=== PATIENT | female | born 1990 | race Caucasian/White ===

== ENCOUNTER 2017-04-20 20:33 | Emergency (ER) | payer MEDICAID ==
[2017-04-20 20:42] VITALS: BP 136/81
[2017-04-20] MEDS ORDERED: DIAZEPAM 5 MG TABLET PO ONE (20:57)
[2017-04-20] MEDS ORDERED: HYDROCODONE/ACETAMINOPHEN 5-325 MG 6 TAB/DSPK PO PRN (20:58)
[2017-04-20] MEDS ORDERED: KETOROLAC TROMETHAMINE 60 MG/2 ML SDV IM ONE (20:58)
--- NOTE | 2017-04-20 21:05 | ER Document Report ---
HPI - HPI Patient complains to provider of: back pain Pain Level: 5 Context: 26 yo female c/o pain to low back. hx/o chronic low back pain. reports "crushed L,4,5" usually take "Perc 10" but uninsured presently and cant afford to see pain management. increased pain x 2 days. typical pain for patient. has been moving into new home, carrying 4mo son. denies fever, urinary or bowel dysfunction, radiculopathy or paresthesias. Associated Symptoms: None Exacerbated by: Movement Relieved by: Denies Similar symptoms previously: Yes Recently seen / treated by doctor: No - ROS Systems Reviewed and Negative: Yes All other systems reviewed and negative - REPRODUCTIVE Reproductive: DENIES: : - DERM Skin Color: Normal Past Medical History - General Information source: Patient - Social History Smoking Status: Current Every Day Smoker Frequency of alcohol use: None Drug Abuse: None Lives with: Family Family History: Arthritis, Thyroid Disfunction Patient has suicidal ideation: No Patient has homicidal ideation: No Renal/ Medical History: Denies: Hx Peritoneal Dialysis Musculoskeltal Medical History: Reports Hx Arthritis, Reports Hx Musculoskeletal Trauma Psychiatric Medical History: Reports: Hx Anxiety Past Surgical History: Reports: Hx Section - Immunizations Immunizations up to date: Yes Hx Diphtheria, Pertussis, Tetanus Vaccination: Yes Vertical Provider Document - CONSTITUTIONAL Agree With Documented VS: Yes Exam Limitations: No Limitations - INFECTION CONTROL TRAVEL OUTSIDE OF THE [place] IN LAST 30 DAYS: No - HEENT HEENT: Atraumatic, PERRLA - NECK Neck: Normal Inspection, Supple - RESPIRATORY Respiratory: Breath Sounds Normal, No Respiratory Distress O2 Sat by Pulse Oximetry: 98 - CARDIOVASCULAR Cardiovascular: Regular Rate, Regular Rhythm - BACK Back: Abnormal Inspection - + distal lumbar spinal tenderness. neg SLT, neg heel toe Course - Re-evaluation Re-evalutation: 04/20/17 21:03 no neurologic deficits or red flags identified. no emergent imaging indicated. - Vital Signs Vital signs: Temp Pulse Resp BP Pulse Ox 98.2 F 95 21 H 136/81 H 98 04/20/17 20:41 04/20/17 20:41 04/20/17 20:41 04/20/17 20:41 04/20/17 20:41 Discharge - Discharge Clinical Impression: Chronic back pain Qualifiers: Back pain location: low back pain Back pain laterality: midline Sciatica presence: without sciatica Qualified Code(s): M54.5 - Low back pain; G89.29 - Other chronic pain Condition: Stable Disposition: ADMITTED INPATIENT Instructions: Ice Packs ([facility]), Warm Packs ([facility]), Low Back Pain ([facility]), Toradol Injection ([facility]) Additional Instructions: Follow up with primary care/pain management for further evaluation and treatment Forms: Elevated Blood Pressure
== END 2017-04-20 21:30 | disposition other institution (70) ==
LOC: ER 20:33
DX: M54.5 Low back pain (principal); M54.9 Dorsalgia, unspecified; F17.200 Nicotine dependence, unspecified, uncomplicated
CPT/HCPCS: 99283; 96372; J1885

== ENCOUNTER 2017-07-03 18:59 | Emergency (ER) | payer SELFPAY ==
[2017-07-03] MEDS ORDERED: KETOROLAC TROMETHAMINE 60 MG/2 ML SDV IM ONE (19:55)
[2017-07-03] MEDS ORDERED: HYDROCODONE/ACETAMINOPHEN 5-325 MG 6 TAB/DSPK PO PRN (20:46)
--- NOTE | 2017-07-03 20:47 | ER Document Report ---
ED Neck/Back Problem - General Chief Complaint: Back Pain Stated Complaint: BACK PAIN Time Seen by Provider: 07/03/17 19:40 Mode of Arrival: Ambulatory Information source: Patient Notes: Patient is a 26-year-old female who presents to the ER today for chronic back pain. Patient states that she moved into a new house and has been lifting a lot lately and aggravated it 2 days ago. She denies any numbness, tingling, loss of bladder or bowel function. She states that she needs surgery for multiple compression fractures that she received 8 years ago when she was 18 years old from a fall. TRAVEL OUTSIDE OF THE [place] IN LAST 30 DAYS: No - Related Data Allergies/Adverse Reactions: No Known Allergies Allergy (Unverified 07/03/17 19:06) Past Medical History - General Information source: Patient - Social History Smoking Status: Unknown if Ever Smoked Chew tobacco use (# tins/day): No Frequency of alcohol use: None Drug Abuse: None Family History: Arthritis, Thyroid Disfunction Renal/ Medical History: Denies: Hx Peritoneal Dialysis Musculoskeltal Medical History: Reports Hx Arthritis, Reports Hx Musculoskeletal Trauma Psychiatric Medical History: Reports: Hx Anxiety Past Surgical History: Reports: Hx Section - Immunizations Immunizations up to date: Yes Hx Diphtheria, Pertussis, Tetanus Vaccination: Yes Review of Systems - Review of Systems Constitutional: No symptoms reported EENT: No symptoms reported Cardiovascular: No symptoms reported Respiratory: No symptoms reported Gastrointestinal: No symptoms reported Genitourinary: No symptoms reported Female Genitourinary: No symptoms reported Musculoskeletal: See HPI Skin: No symptoms reported Hematologic/Lymphatic: No symptoms reported Neurological/Psychological: No symptoms reported Physical Exam - Vital signs Vitals: Temp Pulse Resp BP Pulse Ox 97.9 F 76 18 140/73 H 100 07/03/17 19:06 07/03/17 19:06 07/03/17 19:06 07/03/17 19:06 07/03/17 19:06 - Notes Notes: PHYSICAL EXAMINATION: GENERAL: Well-appearing and in no acute distress. HEAD: Atraumatic, normocephalic. EYES: Pupils equal round and reactive to light, extraocular movements intact, sclera anicteric, conjunctiva are normal. NECK: Normal range of motion, supple without lymphadenopathy LUNGS: CTAB and equal. No wheezes rales or rhonchi. HEART: Regular rate and rhythm without murmurs ABDOMEN: Soft, no tenderness. No guarding, no rebound BACK: lumbar vertebral tenderness, decreased ROM secondary to pain GI/: no CVA tenderness EXTREMITIES: Normal range of motion, no pitting edema. No cyanosis. NEUROLOGICAL: Cranial nerves grossly intact. Normal sensory/motor exams. PSYCH: Normal mood, normal affect. SKIN: Warm, Dry, normal turgor, no rashes or lesions noted Course - Re-evaluation Re-evalutation: 07/03/17 21:29 Patient given Toradol injection here. I will not send her home with a prescription for anything as this is her chronic back pain. I did advise that she take ibuprofen [id number]. She states that muscle relaxers did not work for her. - Vital Signs Vital signs: Temp Pulse Resp BP Pulse Ox 98.9 F 75 19 108/52 L 98 07/03/17 21:14 07/03/17 21:14 07/03/17 21:14 07/03/17 21:14 07/03/17 21:14 Discharge - Discharge Clinical Impression: Chronic back pain Qualifiers: Back pain location: low back pain Back pain laterality: midline Sciatica presence: without sciatica Qualified Code(s): M54.5 - Low back pain Condition: Stable Disposition: HOME, SELF-CARE Instructions: Ice Packs ([facility]), Warm Packs ([facility]) Additional Instructions: Return immediately for any new or worsening symptoms. Follow up with primary care provider, call tomorrow to make followup appointment.
[2017-07-03 21:19] VITALS: BP 108/52
== END 2017-07-03 21:15 | disposition home or self-care (01) ==
LOC: ER 18:59
DX: G89.29 Other chronic pain (principal); M54.5 Low back pain
CPT/HCPCS: 99283; 96372; J1885

== ENCOUNTER 2017-10-19 10:55 | Emergency (ER) | payer SELFPAY ==
[2017-10-19 11:08] VITALS: BP 125/82
--- NOTE | 2017-10-19 12:17 | ER Document Report ---
HPI - HPI Pain Level: 5 Notes: Patient is a 26-year-old female who presents the ED with 2 complaints. The first complaint is nasal congestion/discharge, sore throat, occasional dry nonproductive cough that began this morning at 3 AM. Patient states that she is still eating and drinking without difficulties. She is urinating normally having normal bowel movements. Mother states that there is an illness going around her house. No other concerns or complaints. She has not had any body aches or joint pains. Denies any headache, fever, neck pain, chest pain, palpitations, syncope, shortness of breath, wheeze, dyspnea, abdominal pain, nausea/vomiting/diarrhea, urinary retention, dysuria, hematuria, loss of control of bowel or bladder, numbness/tingling, saddle anesthesia, muscle paralysis/weakness, or rash. Patient second concern is swelling to her right anterior forearm near the antecubital space without obvious redness, bruising, or trauma. Patient states that this began yesterday around lunchtime and has become more painful over the last 12 hours. Patient states that she can still use her wrist and her hand without any difficulties. She has no associated numbness or tingling. She denies any history of cancer, IV drug use, distance travel, prolonged immobilization, recent surgery/trauma, , previous DVT/PE, or other hypercoagulable diseases. She has not noticed any obvious abscess, streaks, or purulent discharge. - ROS Notes: REVIEW OF SYSTEMS: CONSTITUTIONAL : Denies fever, chills, or sweats. Denies recent illness. EENT: see hpi CARDIOVASCULAR: Denies chest pain. Denies palpitations or racing or irregular heart beat. Denies ankle edema. RESPIRATORY: see hpi. Denies shortness of breath, difficulty breathing, or wheezing. GASTROINTESTINAL: Denies abdominal pain or distention. Denies nausea, vomiting , or diarrhea. Denies blood in vomitus, stools, or per rectum. Denies black, tarry stools. Denies constipation. GENITOURINARY: Denies difficulty urinating, painful urination, burning, frequency, blood in urine, or discharge. MUSCULOSKELETAL: see hpi SKIN: see hpi NEUROLOGICAL: Denies dizziness or lightheadedness. Denies headache. Denies weakness or paralysis or loss of use of either side. Denies problems with gait or speech. Denies sensory loss, numbness, or tingling. Denies seizures. ALL OTHER SYSTEMS REVIEWED AND NEGATIVE. Dictation was performed using [employer] voice recognition software - CONSTITUTIONAL Constitutional: REPORTS: Chills. DENIES: Fever - EENT EENT: REPORTS: Sore Throat, Ear Pain. DENIES: Eye problems - NEURO Neurology: DENIES: Headache, Weakness, Vision blurred, Dizzinesss / Vertigo - CARDIOVASCULAR Cardiovascular: DENIES: Chest pain - RESPIRATORY Respiratory: REPORTS: Coughing. DENIES: Trouble Breathing - GASTROINTESTINAL Gastrointestinal: DENIES: Abdominal Pain, Black / Bloody Stools - URINARY Urinary: DENIES: Dysuria, Urgency, Frequency - REPRODUCTIVE Reproductive: DENIES: :, Postmenopausal, Abnormal bleeding / discharge - MUSCULOSKELETAL Musculoskeletal: DENIES: Extremity pain Past Medical History - Social History Smoking Status: Current Every Day Smoker Chew tobacco use (# tins/day): No Frequency of alcohol use: None Drug Abuse: None Family History: Arthritis, Thyroid Disfunction Patient has suicidal ideation: No Patient has homicidal ideation: No Renal/ Medical History: Denies: Hx Peritoneal Dialysis Musculoskeltal Medical History: Reports Hx Arthritis, Reports Hx Musculoskeletal Trauma Psychiatric Medical History: Reports: Hx Anxiety Past Surgical History: Reports: Hx Section - Immunizations Immunizations up to date: Yes Hx Diphtheria, Pertussis, Tetanus Vaccination: Yes Vertical Provider Document - CONSTITUTIONAL Agree With Documented VS: Yes Notes: PHYSICAL EXAMINATION: GENERAL: Well-appearing, well-nourished and in no acute distress. A&Ox4 HEAD: Atraumatic, normocephalic. EYES: Pupils equal round and reactive to light, extraocular movements intact, sclera anicteric, conjunctiva are normal. ENT: EAC clear b/l. TM's intact b/l without erythema, fluid, or perforation. Nares patent and without discharge. oropharynx clear without exudates. No tonsilar hypertrophy or erythema. Moist mucous membranes. No sinus tenderness. Uvula midline. No palatine shift. No tongue protrusion. No airway compromise. NECK: Normal range of motion, supple without lymphadenopathy. No rigidity/ meningismus. LUNGS: Breath sounds clear to auscultation bilaterally and equal. No wheezes rales or rhonchi. HEART: Regular rate and rhythm without murmurs, rubs, gallops. Musculoskeletal: Rt UE: FROM to passive/active. Strength 5+/5. + swelling noted to the rt anterior prox forearm. + tenderness associated with firmness to palp. N/V intact distal. No obvious erythema, abscess, discharge, or streaks visualized. Extremities: No cyanosis, clubbing, or edema b/l. Peripheral pulses 2+. Capillary refill less than 3 seconds. NEUROLOGICAL: Cranial nerves grossly intact. Normal speech, normal gait. Normal sensory, motor exams PSYCH: Normal mood, normal affect. SKIN: see MSK exam. Warm, Dry, normal turgor, no rashes or lesions noted. - INFECTION CONTROL TRAVEL OUTSIDE OF THE [place] IN LAST 30 DAYS: No - RESPIRATORY O2 Sat by Pulse Oximetry: 100 Course - Re-evaluation Re-evalutation: 10/19/17 12:17 Dr. Goldstein was consulted to exam the forearm as well. We will obtain a doppler US to further assess possibility of clot vs abscess. Pt is in agreement with plan. 10/19/17 14:29 Patient is an afebrile, well-hydrated, 26-year-old female who presents the ED with an acute URI, suspect viral, and forearm pain/swelling not otherwise specified. We suspect that there could be more of a musculoskeletal component as the Doppler ultrasound was unremarkable for any DVT, SVT, or fluid pocket. Reviewed case again with Dr. Goldstein who recommended that we send a referral to orthopedics for a consult and further evaluation/management. I will send her home with a prescription for naproxen. Conservative measures otherwise for symptoms. Recheck with your PCM in 3-5 days. Call orthopedics to schedule an appointment for further evaluation and management. Return to the ED with any worsening/concerning symptoms otherwise as reviewed in discharge. Patient is in agreement. - Vital Signs Vital signs: Temp Pulse Resp BP Pulse Ox 97.9 F 96 16 125/82 100 10/19/17 11:07 10/19/17 11:07 10/19/17 11:07 10/19/17 11:07 10/19/17 11:07 Discharge - Discharge Clinical Impression: Acute URI Pain in unspecified forearm Qualifiers: Laterality: right Qualified Code(s): M79.631 - Pain in right forearm Condition: Stable Disposition: HOME, SELF-CARE Instructions: Upper Respiratory Illness ([facility]) Additional Instructions: Rest, Ice, Compression, Elevation Tylenol/ibuprofen as needed Light stretches daily over the counter cold medication as needed for symptoms Humidified air may help with a cough Strength exercises as able Moist heat and massage may help F/u with your PCP in 3-5 days for a recheck Call orthopedics to schedule an appointment for further evaluation and management Return to the ED with any worsening symptoms and/or development of fever, headache, chest pain, palpitations, syncope, shortness of breath, trouble breathing, abdominal pain, n/v/d, muscle weakness/paralysis, numbness/tingling, swelling, redness, or other worsening symptoms that are concerning to you. Prescriptions: Naproxen 500 mg PO BID PRN #30 tablet PRN Reason: Forms: Smoking Cessation Education Referrals: MELISSA ROMERO DPM [Primary Care Provider] - Follow up in 3-5 days [facility] [Provider Group] - Follow up in 3-5 days
[2017-10-19] MEDS ORDERED: ACETAMINOPHEN 325 MG TABLET PO ONE (14:11)
[2017-10-19] MEDS ORDERED: IBUPROFEN 600 MG TABLET PO ONE (14:11)
--- NOTE | 2017-10-19 14:13 | RADIOLOGY REPORT (SQ) ---
EXAM DESCRIPTION: VENOUS UNILATERAL UPPER COMPLETED DATE/TIME: 10/19/2017 2:05 pm REASON FOR STUDY: rt forearm swelling, pain (?clot vs abscess) COMPARISON: None. TECHNIQUE: Dynamic and static kincaid scale and color images acquired of the right arm venous system. S elected spectral images acquired with additional compression and augmentation maneuvers. The contrala teral subclavian vein and internal jugular vein were also imaged. Images stored on PACS. LIMITATIONS: None. FINDINGS: INTERNAL JUGULAR VEIN: Normal phasicity, compression, augmentation. No visualized echogeni c material on kincaid scale. No defects on color images. Comparison opposite side normal. SUBCLAVIAN VEIN: Normal compression, augmentation. No visualized echogenic material on kincaid scale. No defects on color images. AXILLARY VEIN: Normal compression, augmentation. No visualized echogenic material on kincaid scale. No d efects on color images. BRACHIAL VEIN: Normal compression, augmentation. No visualized echogenic material on kincaid scale. No d efects on color images. BASILIC VEIN: Normal compression, augmentation. No visualized echogenic material on kincaid scale. No de fects on color images. CEPHALIC VEIN: Normal compression, augmentation. No visualized echogenic material on kincaid scale. No d efects on color images. OTHER: No other significant finding. CONTRALATERAL SUBCLAVIAN VEIN AND INTERNAL JUGULAR VEIN: Normal phasicity, compression and augmentation. No visualized echogenic material on kincaid scale. No de fects on color images. IMPRESSION: NO EVIDENCE DVT OR SVT IN THE RIGHT ARM. TECHNICAL DOCUMENTATION: JOB ID: [id number] [employer]- All Rights Reserved
== END 2017-10-19 14:50 | disposition home or self-care (01) ==
LOC: ER 10:55
DX: J02.9 Acute pharyngitis, unspecified (principal); M79.631 Pain in right forearm; M79.89 Other specified soft tissue disorders; R05 Cough; R68.83 Chills (without fever); H92.09 Otalgia, unspecified ear; F17.200 Nicotine dependence, unspecified, uncomplicated
CPT/HCPCS: 93971; 99283

== ENCOUNTER 2019-07-25 17:59 | Emergency (ER) | payer SELFPAY ==
[2019-07-25 18:13] VITALS: BP 128/68
--- NOTE | 2019-07-25 19:06 | ER Document Report ---
ED Medical Screen (RME) - General Chief Complaint: Pelvic Pain Stated Complaint: ABDOMINAL CRAMPING Time Seen by Provider: 07/25/19 18:57 Primary Care Provider: MELISSA ROMERO DPM [Primary Care Provider] - Follow up as needed Mode of Arrival: Ambulatory Information source: Patient Notes: 28-year-old female presented to ED for complaint of lower abdominal pain and cramping. She states she has a white vaginal discharge and is . She states she took a positive home test. She is not sure when her last menstrual period was. She is 4 para 3. She has had a in the past. She does smoke 1/2 pack a day. She states she was smoking a pack a day and has decreased to half pack. She is alert oriented respirations regular and unlabored speaking in full sentences. TRAVEL OUTSIDE OF THE [place] IN LAST 30 DAYS: No - Related Data Allergies/Adverse Reactions: No Known Allergies Allergy (Verified 07/25/19 18:50) Past Medical History Renal/ Medical History: Denies: Hx Peritoneal Dialysis Musculoskeltal Medical History: Reports Hx Arthritis, Reports Hx Musculoskeletal Trauma Psychiatric Medical History: Reports: Hx Anxiety Past Surgical History: Reports: Hx Section - Immunizations Immunizations up to date: Yes Hx Diphtheria, Pertussis, Tetanus Vaccination: Yes Physical Exam - Vital signs Vitals: Temp Pulse Resp BP Pulse Ox 98.4 F 105 H 16 128/68 H 97 07/25/19 18:11 07/25/19 18:11 07/25/19 18:11 07/25/19 18:11 07/25/19 18:11 Course - Vital Signs Vital signs: Temp Pulse Resp BP Pulse Ox 98.4 F 105 H 16 128/68 H 97 07/25/19 18:11 07/25/19 18:11 07/25/19 18:11 07/25/19 18:11 07/25/19 18:11 Doctor's Discharge - Discharge Referrals: MELISSA ROMERO DPM [Primary Care Provider] - Follow up as needed
[2019-07-25 20:03] LABS: ABSOLUTE EOSINOPHILS # (AUTO) 0.1 10^3/uL (0.0-0.6); ABSOLUTE LYMPHOCYTES (AUTO) 1.8 10^3/uL (0.5-4.7); ABSOLUTE MONOCYTES (AUTO) 0.5 10^3/uL (0.1-1.4); ABSOLUTE NEUT (AUTO) 6.8 10^3/uL (1.7-8.2); BASOPHILS % (AUTO) 0.3 % (0-2); HEMATOCRIT 40.4 % (36.0-47.0); HEMOGLOBIN 13.8 g/dL (12.0-15.5); LYMPHOCYTES % (AUTO) 19.2 % (13-45); MEAN CORPUSCULAR HEMOGLOBIN 31.1 pg (27.0-33.4); MEAN CORPUSCULAR HGB CONC 34.1 g/dL (32.0-36.0); MEAN CORPUSCULAR VOLUME 91 fl (80-97); MONOCYTES % (AUTO) 5.2 % (3-13); PLATELET COUNT 212 10^3/uL (150-450); RED BLOOD COUNT 4.44 10^6/uL (3.72-5.28); RED CELL DISTRIBUTION WIDTH 12.3 % (11.5-14.0); SEGMENTED NEUTROPHILS % (AUTO) 74.3 % (42-78); TOTAL CELLS COUNTED % (AUTO) 100 %; WHITE BLOOD COUNT 9.2 10^3/uL (4.0-10.5)
[2019-07-25 20:05] LABS: APPEARANCE,URINE CLEAR; BILIRUBIN,URINE NEGATIVE (NEGATIVE); COLOR,URINE YELLOW; GLUCOSE, URINE NEGATIVE (NEGATIVE); KETONES,URINE NEGATIVE (NEGATIVE); LEUKOCYTE ESTERASE,URINE NEGATIVE (NEGATIVE); NITRITE,URINE NEGATIVE (NEGATIVE); PROTEIN,URINE NEGATIVE (NEGATIVE); UROBILINOGEN,URINE NEGATIVE mg/dL (<2.0)
[2019-07-25 20:10] LABS: ALBUMIN 4.2 g/dL (3.5-5.0); ALKALINE PHOSPHATASE 47 U/L (38-126); ANION GAP 8 (5-19); ASPARTATE AMINO TRANSFERASE 35 U/L (14-36); BILIRUBIN,DIRECT 0.1 mg/dL (0.0-0.4); BILIRUBIN,TOTAL 0.2 mg/dL (0.2-1.3); BLOOD UREA NITROGEN 11 mg/dL (7-20); CALCIUM 9.7 mg/dL (8.4-10.2); CARBON DIOXIDE 27 mmol/L (22-30); CHLORIDE 101 mmol/L (98-107); GLUCOSE 72 mg/dL (75-110); POTASSIUM 3.7 mmol/L (3.6-5.0); TOTAL PROTEIN 7.2 g/dL (6.3-8.2)
--- NOTE | 2019-07-25 21:12 | RADIOLOGY REPORT (SQ) ---
US PELVIS EXAM DATE: 07/25/2019 7:04 PM CDT HISTORY: Early . Pelvic pain. COMPARISON: None. TECHNIQUE: Grayscale, color Doppler, and spectral Doppler ultrasound images of the pelvis were obtained. FINDINGS: There is an intrauterine gestational sac with a yolk sac and pole visualized. The crown-rump length measures 4.2 cm corresponding to 11 weeks 1 day of . The heart rate is 163 bpm. Both ovaries are normal in size and contain normal follicles, with the right ovary measuring 4.5 cm and the left ovary measuring 2.9 cm. Normal color Doppler blood flow is seen in both ovaries. No pelvic free fluid. IMPRESSION: Single live IUP with estimated gestational age 11 weeks 1 day.
--- NOTE | 2019-07-25 21:13 | ER Document Report ---
ED GI/ - General Chief Complaint: Pelvic Pain Stated Complaint: ABDOMINAL CRAMPING Time Seen by Provider: 07/25/19 18:57 Primary Care Provider: MELISSA ROMERO DPM [NO LOCAL MD] - Follow up as needed Mode of Arrival: Ambulatory Notes: Patient is a 28-year-old G4, P3 who presents to the emergency department with a chief complaint of lower abdominal cramping. Patient reports she developed lower abdominal cramping 2 days ago. Patient denies vaginal bleeding. Patient reports 2 days ago she also developed white vaginal discharge. Patient reports this does not have a foul odor or itching. Patient reports nausea without vomiting. Patient reports last menstrual cycle was at the beginning of April. Patient reports she is taken a test at home which was reported positive. Patient has not sought care. TRAVEL OUTSIDE OF THE [place] IN LAST 30 DAYS: No - Related Data Allergies/Adverse Reactions: No Known Allergies Allergy (Verified 07/25/19 18:50) Past Medical History - General Information source: Patient - Social History Smoking Status: Current Every Day Smoker Frequency of alcohol use: None Drug Abuse: None Lives with: Family Family History: Arthritis, Thyroid Disfunction Patient has suicidal ideation: No Patient has homicidal ideation: No - Past Medical History Cardiac Medical History: Reports: None Pulmonary Medical History: Reports: None EENT Medical History: Reports: None Neurological Medical History: Reports: None Endocrine Medical History: Reports: None Renal/ Medical History: Reports: None. Denies: Hx Peritoneal Dialysis Malignancy Medical History: Reports: None GI Medical History: Reports: None Musculoskeletal Medical History: Reports Hx Arthritis, Reports Hx Musculoskel etal Trauma Skin Medical History: Reports None Psychiatric Medical History: Reports: Hx Anxiety Traumatic Medical History: Reports: None Infectious Medical History: Reports: None Past Surgical History: Reports: Hx Section - Immunizations Immunizations up to date: Yes Hx Diphtheria, Pertussis, Tetanus Vaccination: Yes Review of Systems - Review of Systems Constitutional: No symptoms reported EENT: No symptoms reported Cardiovascular: No symptoms reported Respiratory: No symptoms reported Gastrointestinal: See HPI Genitourinary: No symptoms reported Female Genitourinary: See HPI Musculoskeletal: No symptoms reported Skin: No symptoms reported Hematologic/Lymphatic: No symptoms reported Neurological/Psychological: No symptoms reported Physical Exam - Vital signs Vitals: Temp Pulse Resp BP Pulse Ox 98.4 F 105 H 16 128/68 H 97 10/02/19 18:11 07/25/19 18:11 07/25/19 18:11 07/25/19 18:11 07/25/19 18:11 Interpretation: Normal - Notes Notes: GENERAL: Well-appearing, well-nourished and in no acute distress. HEAD: Atraumatic, normocephalic. EYES: Pupils equal round and reactive to light, extraocular movements intact, sclera anicteric, conjunctiva are normal. ENT: Nares patent, oropharynx clear without exudates. Moist mucous membranes. NECK: Normal range of motion, supple without lymphadenopathy or JVD. LUNGS: Breath sounds clear to auscultation bilaterally and equal. No wheezes rales or rhonchi. HEART: Regular rate and rhythm without murmurs, rubs or gallops. ABDOMEN: Soft, nontender, normoactive bowel sounds. No guarding, no rebound. No masses appreciated. BACK: No cervical, thoracic, lumbar midline tenderness. No saddle anesthesia, normal distal neurovascular exam. GENITOURINARY: Deferred. EXTREMITIES: Normal range of motion, no pitting or edema. No clubbing or cyanosis. NEUROLOGICAL: Cranial nerves II through XII grossly intact. Normal speech, normal gait. PSYCH: Normal mood, normal affect. SKIN: Warm, Dry, normal turgor, no rashes or lesions noted. Course - Re-evaluation Re-evalutation: 07/25/19 21:13 Patient does have a live intrauterine measuring 11 weeks and 1 day. Will obtain a pelvic examination to rule out infection, bacterial vaginosis or yeast. 07/25/19 21:57 Patient's lab work was unremarkable. Patient does not have a bacterial vaginosis, yeast or trichomonas. Gonorrhea and Chlamydia cultures are pending. I did discuss precautions with the patient and informed her she does need to seek care, start taking a vitamin, quit smoking, do not take ibuprofen. I did inform her that if she is hurting and would like to take something for pain she may take Tylenol. - Vital Signs Vital signs: Temp Pulse Resp BP Pulse Ox 98.4 F 105 H 16 128/68 H 97 07/25/19 18:11 07/25/19 18:11 07/25/19 18:11 07/25/19 18:11 07/25/19 18:11 - Laboratory Result Diagrams: 07/25/19 19:38 07/25/19 19:38 Laboratory results interpreted by me: 07/25/19 19:38 Sodium 136.4 L Glucose 72 L Beta HCG, Quant 81484.00 H 07/25/19 21:12 Patient's beta quant is 61,507. Patient does not have a leukocytosis, anemia, alteration in electrolytes or kidney function. Patient has a normal liver function. Patient's urinalysis was unremarkable. Laboratory 07/25/19 07/25/19 07/25/19 19:38 19:38 19:38 WBC 9.2 RBC 4.44 Hgb 13.8 Hct 40.4 MCV 91 MCH 31.1 MCHC 34.1 RDW 12.3 Plt Count 212 Lymph % (Auto) 19.2 [place] % (Auto) 5.2 Eos % (Auto) 1.0 Baso % (Auto) 0.3 Absolute Neuts (auto) 6.8 Absolute Lymphs (auto) 1.8 Absolute Monos (auto) 0.5 Absolute Eos (auto) 0.1 Absolute Basos (auto) 0.0 Seg Neutrophils % 74.3 Sodium 136.4 L Potassium 3.7 Chloride 101 Carbon Dioxide 27 Anion Gap 8 BUN 11 Creatinine 0.52 Est GFR ( Amer) > 60 Est GFR (MDRD) Non-Af > 60 Glucose 72 L Calcium 9.7 Total Bilirubin 0.2 Direct Bilirubin 0.1 Neonat Total Bilirubin Not Reportable Neonat Direct Bilirubin Not Reportable Neonat Indirect Bili Not Reportable AST 35 ALT 57 Alkaline Phosphatase 47 Total Protein 7.2 Albumin 4.2 Beta HCG, Quant 34699.00 H Total Beta HCG POSITIVE Urine Color YELLOW Urine Appearance CLEAR Urine pH 6.0 Ur Specific [place] 1.010 Urine Protein NEGATIVE Urine Glucose (UA) NEGATIVE Urine Ketones NEGATIVE Urine Blood NEGATIVE Urine Nitrite NEGATIVE Urine Bilirubin NEGATIVE Urine Urobilinogen NEGATIVE Ur Leukocyte Esterase NEGATIVE Urine WBC (Auto) 4 Urine RBC (Auto) 2 Squamous Epi Cells Auto 3 Urine Mucus (Auto) RARE Urine Ascorbic Acid NEGATIVE - Diagnostic Test Radiology reviewed: Reports reviewed Radiology results interpreted by me: 07/25/19 21:12 Obstetrics Ultrasound 07/25/19 19:04 IMPRESSION: Single live IUP with estimated gestational age 11 weeks 1 day. Procedures - Pelvic Exam Pelvic exam Time completed: 21:30 Cultures obtained: Yes Wet prep obtained: Yes Witnessed by: Rochelle WEI Notes: 07/25/19 21:41 External genitalia was unremarkable without edema, erythema, vaginal discharge or lesions. Patient tolerated the insertion of the speculum well. I was able to visualize the cervix which was closed. Patient did have a small amount of white vaginal discharge. The discharge was noted around the cervix and the vaginal vault. There was no bleeding. Discharge - Discharge Clinical Impression: Pelvic cramping, Vaginal discharge Qualifiers: Weeks of gestation: 11 weeks Qualified Code(s): Z3A.11 - 11 weeks gestation of Condition: Stable Disposition: HOME, SELF-CARE Instructions: [employer] Doctors Additional Instructions: Today you were seen in the emergency department for vaginal discharge. At this moment you do not have any bacterial vaginosis or yeast. You are . With you can have a change in your normal vaginal discharge. Your ultrasound does show that you are 11 weeks and 1 day . Your blood work was unremarkable for any infection. Please seek care. : You are . care is best started as early in as possible. If you're unsure about continuing this , you should discuss this with your physician or with hospital television rental clerk at [facility]. You should take only medications approved by your physician. Acetaminophen can safely be taken for minor pains. As a rule, medication for chronic conditions such as asthma or seizures can safely be continued. You should discuss with the physician every medicine you take. Any regular exercise program can be continued. Talk to your physician, however, before engaging in competitive or demanding sports. Alcohol, smoking, and "street drugs" are dangerous to your baby. Cocaine is especially dangerous. Don't use any illicit drugs! FOLLOW-UP CARE: If you have been referred to a physician for follow-up care, call the physicians office for an appointment as you were instructed or within the next two days. If you experience worsening or a significant change in your symptoms (very heavy bleeding with large clots of blood, passage of tissue, more severe abdominal / pelvic pain or cramping, feeling faint or severe weakness, fever, etc.), notify the physician immediately or return to the Emergency Department at any time for re-evaluation. OBSTETRIC-GYNECOLOGIC (OB-[facility]) PHYSICIANS IN [place]: The [address] [phone] [facility] [address] [place] [address] [phone] For active duty and dependents diagnosed with a threatened or miscarriage, you should follow up in the following manner: Standard patients who have a local civilian provider should follow up with that provider. Patients of the Family Practice Clinic should call your Team Nurse at 8:00 am the following morning for further instructions. If you are neither a Standard patient nor a patient of the Family Practice Clinic, you should follow up at the [facility] ([facility]). Patients already enrolled in the [facility] OB Clinic, Prime patients not assigned to the Family Practice Clinic, and Active Duty patients not assigned to Family Practice Clinic should report to the [facility] Lab at 8:00 am the next morning that the [facility] OB Clinic is open and then you will be seen in the OB Clinic at 11:00 am. Referrals: MELISSA ROMERO DPM [NO LOCAL MD] - Follow up as needed
[2019-07-25 21:54] LABS: RBCS (WET MOUNT) NO RBCS SEEN; T.VAGINALIS (WET MOUNT) NO TRICHOMONAS SEEN; WBCS (WET MOUNT) FEW WBCS SEEN; YEAST (WET MOUNT) NO YEAST SEEN
[2019-07-25 23:26] LABS: CHLAM PCR NOT DETECTED (NOT DETECT)
== END 2019-07-25 22:11 | disposition home or self-care (01) ==
LOC: ER 17:59
DX: O26.891 Other specified pregnancy related conditions, first trimester (principal); R10.2 Pelvic and perineal pain; N89.8 Other specified noninflammatory disorders of vagina; R11.0 Nausea; O99.331 Smoking (tobacco) complicating pregnancy, first trimester; F17.200 Nicotine dependence, unspecified, uncomplicated; Z3A.11 11 weeks gestation of pregnancy
CPT/HCPCS: 36415; 76817; 80053; 81001; 84702; 85025; 87086; 87210; 87491; 87591